=== PATIENT | female | born 1970 | race Caucasian/White ===

== ENCOUNTER 2016-06-21 16:42 | Emergency (ER) | payer BC ==
[2016-06-21 16:47] VITALS: BP 131/88; BMI 34.4
--- NOTE | 2016-06-21 17:37 | DR.GENAD ---
HPI - PCP Primary Care Physician: [email or web address] - HPI Comment HPI Comment: PATIENT HAVE PAIN DUE TO REFLUX FOR FEW MONTHS AND TAKE PILOSEC. PAST 4 DAYS, PAIN WORSE. NO RADIATION. NO URI SYMTOMS OR COUGH, NO FEVER. - Complaint/Symptoms Chief Complaint Doctors Comments: CHEST PAIN TIMES 4 DAYS. Chief Complaint:: patient stated she has had dull chest pain for sveral months but for the past 4 days it has been worse. - Nurses notes reviewed Nurses Notes Review: Yes - Source History Provided: Patient - Mode of Arrival Mode of Arrival: Ambulatory - Timing Onset of Chief Complaint: 06/17/16 Came on: Gradually - Duration Duration: Constant Duration: Days - Severity Severity: Moderate PMH - PMH Past Medical History: Yes Past Medical History: Diabetes, Dyslipidemia, Hypertension, Hypothyroidism Past Surgical History: Yes Surgical History: , Cholecystectomy, Ortho Surgery, Other - Family History History of Family Medical Conditions: Yes Family Medical History: Diabetes Mellitus, Cancer, Coronary Artery Disease, Hypertension - Social History Does patient currently use any type of tobacco product: Yes Have you used tobacco products in the last 12 months: Yes Type of Tobacco Use: Cigarettes How many years tobacco product used: 30 Does any household member use tobacco: No Alcohol Use: None Do you use any recreational Drugs:: No Lives With: Family Lives Where: Home - infectious screening In the last 2 months have you had wt loss of >10#?: NO Have you had fever, night sweats or hemotysis?: No Have you traveled outside the country in the last 6 months?: No Isolation: Standard ROS - Review of Systems Constitutional: negative: Chills, Diaphoresis, Fever, Weakness, Fatigue, Loss of Appetite Eyes: No Symptoms Reported. negative: Eye Pain, Discharge ENTM: No Symptoms Reported. negative: Ear Pain, Nose Discharge, Nose Congestion , Throat Pain Respiratoy: No Symptoms Reported. negative: Productive Cough, Short of Breath, Wheezing, Hemoptysis Cardiovascular: Chest Pain Gastrointestinal/Abdominal: No Symptoms Reported. negative: Abdominal Pain, Nausea, Vomiting Genitourinary: No Symptoms Reported. negative: Dysuria, Frequency, Hematuria Neurological: No Symptoms Reported. negative: Headache, Weakness, Dizziness Musculoskeletal: Chest wall Integumentary: No Symptoms Reported Hematologic/Lymphatic: No Symptoms Reported Endocrine: No Symptoms Reported All Other Systems: Reviewed and Negative PE - Vital Signs Vitals: Temperature 97.9 F Pulse Rate 87 Respiratory Rate 16 Blood Pressure 131/88 O2 Sat by Pulse Oximetry 100 - General Limitations: No Limitations General Appearance: Alert - Head Head Exam: Normal Inspection - Eyes Eye exam: Normal Appearance - ENT ENT Exam: Normal External Ear Exam External Ear Exam: Normal External Inspection TM/Canal Exam: Bilateral Normal Nose Exam: Normal Nose Exam Mouth Exam: Normal Inspection Throat Exam: Normal Inspection - Neck Neck Exam: Normal Inspection - Chest Chest Inspection: Symmetric Chest Wall Rise - Respiratory Respiratory Exam: Normal Lung Sounds Bilat. negative: Chest Wall Tenderness Respiratory Exam: Bilateral Rhonchi, Lower Rhonchi - Cardiovascular Cardiovascular Exam: Regular Rate, Normal Rhythm, Normal Heart Sounds - Abdominal Exam Abdominal Exam: Normal Bowel Sounds, Soft. negative: Tenderness - Extremities Extremities Exam: Normal Inspection - Back Back Exam: Normal Inspection - Neurologic Neurological Exam: Alert, Oriented X3, CN II-XII Intact, Normal Gait, Reflexes Normal. negative: Motor Sensory Deficit - Psychiatric Psychiatric Exam: Normal Affect, Normal Mood - Skin Skin Exam: Normal Color MDM - Differential Diagnosis Differential Diagnosis: CHEST PAIN, PUD, REFLUX ESOPHAGITIS, PNEUMONIA, PNEUMOTHORAX. ROR - Labs Reviewed Result Diagrams: 06/21/16 17:45 06/21/16 17:45 Laboratory: WBC 7.0 X10^3/uL (3.6-10.0) 06/21/16 17:45 RBC 4.94 X10^6/uL (3.5-5.4) 06/21/16 17:45 Hgb 15.3 g/dL (12.0-16.0) 06/21/16 17:45 Hct 43.6 % (36.0-47.0) 06/21/16 17:45 MCV 88.1 fL (80.0-100.0) 06/21/16 17:45 MCH 31.0 pg (27.0-34.0) 06/21/16 17:45 MCHC 35.2 g/dL (33.0-35.0) H 06/21/16 17:45 RDW 13.6 % (11.6-16.5) 06/21/16 17:45 Plt Count 196 X10^3/uL (150.0-450.0) 06/21/16 17:45 MPV 8.9 fL (7.4-11.0) 06/21/16 17:45 Neut % 58.1 % (42.0-75.0) 06/21/16 17:45 Lymph % 31.9 % (21.0-51.0) 06/21/16 17:45 Freestone % 6.4 % (0.0-13.0) 06/21/16 17:45 Eos % 2.7 % (0.9-2.9) 06/21/16 17:45 Baso % 0.9 % (0.2-1.0) 06/21/16 17:45 Neut # 4.1 x10^3/uL (2.2-4.8) 06/21/16 17:45 Lymph # 2.2 X10^3/uL (1.3-2.9) 06/21/16 17:45 Freestone # 0.4 x10^3/uL (0.3-0.8) 06/21/16 17:45 Eos # 0.2 x10^3/uL (0.0-0.2) 06/21/16 17:45 Baso # 0.1 X10^3/uL (0.0-0.1) 06/21/16 17:45 Absolute Nucleated RBC 0.1 /100WBC 06/21/16 17:45 Sodium 140 mmol/L (136-145) 06/21/16 17:45 Corrected Sodium 145 mmol/L (136-145) 06/21/16 17:45 Potassium 4.2 mmol/L (3.5-5.1) 06/21/16 17:45 Chloride 103 mmol/L (98-107) 06/21/16 17:45 Carbon Dioxide 26.1 mmol/L (21-32) 06/21/16 17:45 BUN 12 mg/dL (7-18) 06/21/16 17:45 Creatinine 0.67 mg/dL (0.55-1.02) 06/21/16 17:45 Est GFR (MDRD) Af Amer > 60 (>60) 06/21/16 17:45 Est GFR (MDRD) Non-Af > 60 (>60) 06/21/16 17:45 Glucose 305 mg/dL (65-99) H 06/21/16 17:45 Calcium 8.8 mg/dL (8.5-10.1) 06/21/16 17:45 Corrected Calcium 9.4 mg/dL (8.5-10.1) 06/21/16 17:45 Total Bilirubin 0.30 mg/dL (0.2-1.0) 06/21/16 17:45 AST 18 Units/L (15-37) 06/21/16 17:45 ALT 33 Units/L (12-78) 06/21/16 17:45 Alkaline Phosphatase 78 Units/L (46-116) 06/21/16 17:45 Creatine Kinase 37 Units/L (26-192) 06/21/16 17:45 CK-MB (CK-2) < 1.0 ng/mL (0-4.0) 06/21/16 17:45 CK/CKMB % Calc 2.7 % (<4) 06/21/16 17:45 Troponin I < 0.02 ng/mL (0-1.5) 06/21/16 17:45 Total Protein 7.0 g/dL (6.4-8.2) 06/21/16 17:45 Albumin 3.2 g/dL (3.4-5.0) L 06/21/16 17:45 Globulin 3.8 g/dL (2.5-4.5) 06/21/16 17:45 Albumin/Globulin Ratio 0.8 Ratio (1.1-2.1) L 06/21/16 17:45 - Diagnosis Discharge Problem: Chest pain Qualifiers: Chest pain type: intercostal pain Qualified Code(s): R07.82 - Intercostal pain - Discharge Plan Disposition: 01 HOME, SELF-CARE Condition: Stable - Follow ups/Referrals Follow ups/Referrals: NFD,None [Primary Care Provider] - 3 days - Instructions Instructions: Chest Pain Observation Additional Instructions: RETURN TO ED IF WORSE.
--- NOTE | 2016-06-21 17:55 | RAD ---
HISTORY: Right chest wall pain for months Study: Portable chest Comparison: July 26, 2014 Findings: The trachea is midline. The cardiac silhouette is unremarkable. There is an unchanged calcified gr anuloma at the right lung base. There is no pleural effusion. The lungs are clear of active disease. . The bony thorax is unremarkable. IMPRESSION: 1. Old healed granulomatous disease, no acute disease demonstrated Reported By:
[2016-06-21 17:57] LABS: BASOPHILS # (AUTO) 0.1 X10^3/uL (0.0-0.1); BASOPHILS % (AUTO) 0.9 % (0.2-1.0); EOSINOPHILS # (AUTO) 0.2 x10^3/uL (0.0-0.2); EOSINOPHILS % (AUTO) 2.7 % (0.9-2.9); HEMATOCRIT 43.6 % (36.0-47.0); HEMOGLOBIN 15.3 g/dL (12.0-16.0); LYMPHOCYTES # (AUTO) 2.2 X10^3/uL (1.3-2.9); LYMPHOCYTES % (AUTO) 31.9 % (21.0-51.0); MEAN CORPUSCULAR HGB CONC 35.2 g/dL (33.0-35.0); MEAN CORPUSCULAR VOLUME 88.1 fL (80.0-100.0); MEAN PLATELET VOLUME 8.9 fL (7.4-11.0); MONOCYTES # (AUTO) 0.4 x10^3/uL (0.3-0.8); MONOCYTES % (AUTO) 6.4 % (0.0-13.0); NEUTROPHILS # (AUTO) 4.1 x10^3/uL (2.2-4.8); NEUTROPHILS % (AUTO) 58.1 % (42.0-75.0); PLATELET COUNT 196 X10^3/uL (150.0-450.0); RED BLOOD COUNT 4.94 X10^6/uL (3.5-5.4); RED CELL DISTRIBUTION WIDTH 13.6 % (11.6-16.5)
[2016-06-21 18:13] LABS: BLOOD UREA NITROGEN 12 mg/dL (7-18); CALCIUM 8.8 mg/dL (8.5-10.1); CARBON DIOXIDE 26.1 mmol/L (21-32); CHLORIDE 103 mmol/L (98-107); COR NA(FOR HYPERGLY) 145 mmol/L (136-145); CREATININE 0.67 mg/dL (0.55-1.02); GLUCOSE 305 mg/dL (65-99); SODIUM 140 mmol/L (136-145); TROPONIN I < 0.02 ng/mL (0-1.5); eGFR BLACK RACES > 60 (>60); eGFR NON BLACK RACES > 60 (>60)
[2016-06-21 18:17] LABS: ALANINE AMINOTRANSFERASE 33 Units/L (12-78); ALBUMIN 3.2 g/dL (3.4-5.0); ALKALINE PHOSPHATASE 78 Units/L (46-116); ASPARTATE AMINO TRANSFERASE 18 Units/L (15-37); CKMB % 2.7 % (<4); COR CA(FOR HYPOALB) 9.4 mg/dL (8.5-10.1); CREATINE KINASE 37 Units/L (26-192); CREATINE KINASE MB < 1.0 ng/mL (0-4.0)
== END 2016-06-21 18:35 | disposition home or self-care (01) ==
LOC: ER 16:52
DX: R07.82 Intercostal pain (principal); D71 Functional disorders of polymorphonuclear neutrophils
CPT/HCPCS: 36415; 71010; 80053; 82550; 82553; 84484; 85025; 93005; 93010; 99282; 99283

== ENCOUNTER 2016-08-10 20:56 | Emergency (ER) | payer BC ==
[2016-08-10 21:02] VITALS: BP 156/92; BMI 33.7
[2016-08-10] MEDS ORDERED: PHENERGAN INJ 25 MG IM ONE (22:11)
[2016-08-10] MEDS ORDERED: DEMEROL INJ IM ONE (22:11)
--- NOTE | 2016-08-10 22:18 | DR.GENAD ---
HPI - PCP Primary Care Physician: Melinda - Complaint/Symptoms Chief Complaint Doctors Comments: Patient states she was walking in her yard on wet grass and slipped and fell on her right shoulder about ten hours ago with severe right shoulder pain and right arm pain. States she cannot move her right shoulder and the pain is going to the right side of her chest and neck. States the pain is 10 of 10. She is able to move her fingers fine. She denies head trauma or LOC. She denies numbness or tingling in hands or arm. Stats she is allergic to glucophage. Chief Complaint:: "A couple of hours ago I fell and hurt my right shoulder. I can't even turn the irving to my car now. It hurts all the way up to my neck." - Nurses notes reviewed Nurses Notes Review: Yes - Source History Provided: Patient - Mode of Arrival Mode of Arrival: Ambulatory - Timing Onset of Chief Complaint: 08/10/16 Came on: Suddenly - Duration Duration: Constant How lon Duration: Hours - Location Location: right shoulder pain - Severity Severity: Severe - Modifying Factors Worsens:: movement Improves:: nothing PMH - PMH Past Medical History: Yes Past Medical History: Diabetes, Dyslipidemia, Hypertension, Hypothyroidism Past Surgical History: Yes Surgical History: , Cholecystectomy, Ortho Surgery, Other Past Surgical History Comment: Knee - Family History History of Family Medical Conditions: Yes Family Medical History: Diabetes Mellitus, Cancer, Coronary Artery Disease, Hypertension - Social History Does patient currently use any type of tobacco product: Yes Have you used tobacco products in the last 12 months: Yes Type of Tobacco Use: Cigarettes Does any household member use tobacco: Yes Alcohol Use: None Do you use any recreational Drugs:: No Lives With: Family Lives Where: Home - infectious screening In the last 2 months have you had wt loss of >10#?: NO Have you had fever, night sweats or hemotysis?: No Have you traveled outside the country in the last 6 months?: No Isolation: Standard ROS - Review of Systems Constitutional: No Symptoms Reported. negative: See HPI, Chills, Diaphoresis, Fever, Malaise, Weakness, Irritable, Fatigue, Loss of Appetite, Other Eyes: No Symptoms Reported ENTM: No Symptoms Reported. negative: See HPI, Ear Pain, Ear Discharge, Pulling on Ears, Hearing Loss, Nose Pain, Nose Discharge, Epistaxis, Nose Congestion, Mouth Pain, Mouth Swelling, Loose Teeth, Drooling, Throat Pain, Throat Swelling, Ear Foreign Body Respiratoy: No Symptoms Reported Cardiovascular: No Symptoms Reported, Chest Pain (right chest wall pain after fall.) Gastrointestinal/Abdominal: No Symptoms Reported. negative: See HPI, Abdominal Pain, Constipation, Diarrhea, Nausea, Vomiting, Food Intolerance, Other Genitourinary: No Symptoms Reported. negative: See HPI, Discharge, Dysuria, Frequency, Hematuria, Pain, Bleeding, Other Neurological: No Symptoms Reported. negative: See HPI, Anxiety, Depressed, Emotional Problems, Headache, Numbness, Paresthesia, Pre-existing Deficit, Seizure, Tingling, Tremors, Weakness, Dizziness, Problems Walking, Speech Problem, Other Musculoskeletal: No Symptoms Reported, Neck Pain, Right, Chest wall, Shoulder Integumentary: No Symptoms Reported. negative: See HPI, Change in Color, Change in Hair/Nails, Dryness, Lesions, Lumps, Rash, Itching, Wound, Bruises, Juandice, Other Hematologic/Lymphatic: No Symptoms Reported. negative: See HPI, Anemia, Blood Clots, Easy Bleeding, Easy Bruising, Swollen Glands, Lymphadenopathy, Other Endocrine: No Symptoms Reported. negative: See HPI, Excessive Sweating, Flushing, Intolerance to Cold, Intolerance to Heat, Increased Hunger, Increased Thirst, Increased Urine, Unexplained Weight Gain, Unexplained Weight Loss, Failure to Thrive, Decreased Appetite, Other Psychiatric: No Symptoms Reported. negative: See HPI, Anxiety, Depression, Hallucinations, Excessive crying, Suicidal, Other PE - Vital Signs Vitals: Temperature 98.1 F Pulse Rate 93 Respiratory Rate 18 Blood Pressure 156/92 O2 Sat by Pulse Oximetry 98 - General Limitations: No Limitations General Appearance: Alert, In Distress (moderate to severe) - Head Head Exam: Normal Inspection, Atraumatic, Normocephalic - Eyes Eye exam: Normal Appearance, PERRL, EOMI. negative: Scleral Icterus, Conjunctival Injection, Nystagmus, Miosis, Mydrasis, Periorbital Swelling, Periorbital Tenderness, Other - ENT ENT Exam: Normal Exam, Normal Oropharynx, Normal External Ear Exam, Mucous Membranes Moist, TM's Normal Bilaterally External Ear Exam: Normal External Inspection TM/Canal Exam: Bilateral Normal Nose Exam: Normal Nose Exam Mouth Exam: Normal Inspection Throat Exam: Normal Inspection - Neck Neck Exam: Normal Inspection, Full ROM, Trachea Midline, Tenderness (right lateral neck tenderness with spasms). negative: Meningismus, Lymphadenopathy, Thyromegaly, Other - Chest Chest Inspection: Normal Inspection, Symmetric Chest Wall Rise - Respiratory Respiratory Exam: Normal Lung Sounds Bilat Respiratory Exam: Bilateral Clear to Auscultation - Cardiovascular Cardiovascular Exam: Regular Rate, Normal Rhythm, Normal Heart Sounds. negative : Bradycardia, Tachycardia, Irregular Rhythm, Systolic Murmur, Diastolic Murmur , Rubs, Gallop, Clicks, JVD, +S1, +S2, +S3, +S4, Other - Abdominal Exam Abdominal Exam: Normal Inspection, Normal Bowel Sounds, Soft. negative: Distention, Tenderness, Guarding, Rebound, Rigidity, Dimnished Bowel Sounds, Hyperactive Bowel Sounds, Hypoactive Bowel Sounds, Organomegaly, Trauma, Incision, Ascites, Mass, Bruit, Pulsatile Mass, Hernia, Other Abdominal Tenderness: negative: RUQ, RLQ, LUQ, LLQ, Epigastrium, Suprapubic, Diffuse, Mild, Moderate, Severe, Other - Extremities Extremities Exam: Normal Inspection, Full ROM, Tenderness (right humerus tender on palpation and movement), Normal Capillary Refill - Back Back Exam: Normal Inspection, Full ROM. negative: Tenderness, (R) CVA Tenderness, (L) CVA Tenderness, Muscle Spasm, Paraspinal Tenderness, Vertebral Tenderness, Rashes, (R) Sciatic Notch Tenderness, (L) Sciatic Notch Tendern, (R ) Straight Leg Raise, (L) Straight Leg Raise, Other - Neurologic Neurological Exam: Alert, Oriented X3, CN II-XII Intact, Normal Gait, Reflexes Normal - Psychiatric Psychiatric Exam: Normal Affect, Normal Mood. negative: Depressed, Agitated, Anxious, Flat Affect, Manic, Homicidal Ideation, Suicidal Ideation, Other - Skin Skin Exam: Warm, Dry, Intact, Normal Color ROR - Labs Reviewed Laboratory Results Reviewed?: Yes (all x-ray results reviewed and discussed with patient and family) - XRAY XRAY Interpreted by: Radiologist (Cervical spine: No acute ceravical spine fracature,), Both (CXR: no acute cardiopulmonary changes noted.) XRAY Findings: Right shoulder: No acuate right humerus fracture or dislocation. Mild arthr - Diagnosis Discharge Problem: Arthritis Contusion of right shoulder Qualifiers: Encounter type: initial encounter Qualified Code(s): S40.011A - Contusion of right shoulder, initial encounter Right shoulder pain Qualifiers: Chronicity: acute Qualified Code(s): M25.511 - Pain in right shoulder Fall Qualifiers: Encounter type: initial encounter Qualified Code(s): W19.XXXA - Unspecified fall, initial encounter - Discharge Plan Disposition: HOME, SELF-CARE Condition: Stable Prescriptions: Acetaminophen/Codeine Tab [TYLENOL w/CODEINE #3 (300 MG/30 MG) *] 1 tab PO Q4- 6H PRN #14 tab PRN Reason: Pain Naproxen [NAPROSYN 500 MG *] 500 mg PO BID PRN #24 tab PRN Reason: Pain/Inflammation - Follow ups/Referrals Follow ups/Referrals: JOSY ORTEGA [Primary Care Provider] - 3 days DI PINEDA [STAFF PHYSICIAN] - 3 days - Instructions Instructions: Contusion, Shoulder Pain, Fall Prevention in the Home, Easy-to- Read
[2016-08-10] MEDS ORDERED: PHENERGAN INJ 25 MG ONE (23:02)
[2016-08-10] MEDS ORDERED: DEMEROL INJ ONE (23:02)
--- NOTE | 2016-08-10 23:29 | RAD ---
Chest PA and lateral Indication: Chest pain. Findings: There is no pneumothorax or effusion. Right lung granuloma noted. Heart size is normal. No consolidation seen. No displaced rib fracture seen. Impression: No acute chest process. Reported By:
--- NOTE | 2016-08-10 23:30 | RAD ---
Cervical spine radiographs-five views Indication: Neck pain after fall. Findings: There is no cortical lucency or malalignment. Prevertebral soft tissues are normal. Cervic othoracic junction and craniocervical junctions are grossly intact. Oblique views show no bony neura l foramen narrowing. Impression: No acute cervical spine fracture, within the limits of radiography. Reported By:
--- NOTE | 2016-08-10 23:36 | RAD ---
Right shoulder four views Indication: Pain after fall. Findings: There is mild glenohumeral acromioclavicular degenerative change without cortical lucency or malalignment. Impression: No acute right shoulder fracture. Reported By:
--- NOTE | 2016-08-10 23:42 | RAD ---
Right humerus-two views Indication: Right shoulder pain after fall. Findings: There is no cortical lucency or malalignment. Impression: No acute right humerus fracture. Reported By:
== END 2016-08-11 00:23 | disposition home or self-care (01) ==
LOC: ER 20:56
DX: S40.011A Contusion of right shoulder, initial encounter (principal); M25.511 Pain in right shoulder; W19.XXXA Unspecified fall, initial encounter; Y92.096 Garden or yard of other non-institutional residence as the place of occurrence of the external cause
CPT/HCPCS: 71020; 72050; 73030; 73060; 96372; 99283; J2175; J2550

== ENCOUNTER → 2016-11-07 | Outpatient (CLI) | payer BC ==
[2016-11-07 09:40] LABS: BASOPHILS # (AUTO) 0.1 X10^3/uL (0.0-0.1); EOSINOPHILS # (AUTO) 0.2 x10^3/uL (0.0-0.2); EOSINOPHILS % (AUTO) 2.4 % (0.9-2.9); HEMATOCRIT 45.8 % (36.0-47.0); HEMOGLOBIN 16.1 g/dL (12.0-16.0); LYMPHOCYTES % (AUTO) 28.7 % (21.0-51.0); MEAN CORPUSCULAR HGB CONC 35.1 g/dL (33.0-35.0); MEAN CORPUSCULAR VOLUME 88.5 fL (80.0-100.0); MEAN PLATELET VOLUME 8.9 fL (7.4-11.0); MONOCYTES # (AUTO) 0.5 x10^3/uL (0.3-0.8); MONOCYTES % (AUTO) 7.9 % (0.0-13.0); NEUTROPHILS # (AUTO) 4.1 x10^3/uL (2.2-4.8); PLATELET COUNT 213 X10^3/uL (150.0-450.0); RED BLOOD COUNT 5.18 X10^6/uL (3.5-5.4); RED CELL DISTRIBUTION WIDTH 13.3 % (11.6-16.5); WHITE BLOOD COUNT 6.8 X10^3/uL (3.6-10.0)
[2016-11-07 09:48] LABS: HEMOGLOBIN A1C 9.6 % (4.5-6.2)
[2016-11-07 10:00] LABS: ALANINE AMINOTRANSFERASE 29 Units/L (12-78); ALBUMIN 3.3 g/dL (3.4-5.0); ALKALINE PHOSPHATASE 62 Units/L (46-116); ASPARTATE AMINO TRANSFERASE 17 Units/L (15-37); BLOOD UREA NITROGEN 14 mg/dL (7-18); CALCIUM 8.7 mg/dL (8.5-10.1); CHLORIDE 100 mmol/L (98-107); CHOL/HDL RATIO 6.2 (0.0-5.0); CHOLESTEROL 204 mg/dL (0-200); COR NA(FOR HYPERGLY) 136 mmol/L (136-145); CREATININE 0.62 mg/dL (0.55-1.02); HDL CHOLESTEROL 33 mg/dL (40-60); SODIUM 131 mmol/L (136-145); TRIGLYCERIDES 171 mg/dL (0-150); TSH (3RD GENERATION) 0.965 uIU/mL (0.358-3.74); eGFR BLACK RACES > 60 (>60); eGFR NON BLACK RACES > 60 (>60)
== END ==
LOC: LAB 09:00
PROVIDERS: ATTEND Internal Medicine
DX: I10 Essential (primary) hypertension (principal); R53.83 Other fatigue; R68.89 Other general symptoms and signs; E78.4 Other hyperlipidemia; R16.0 Hepatomegaly, not elsewhere classified; E11.8 Type 2 diabetes mellitus with unspecified complications; E03.8 Other specified hypothyroidism
CPT/HCPCS: 36415; 80048; 80061; 80076; 83036; 84443; 85025